=== PATIENT | female | born 1980 | race Caucasian/White ===

== ENCOUNTER 2024-03-18 08:07 | Emergency (ER) | payer SELFPAY ==
[2024-03-18 08:07] VITALS: BP 161/94
--- NOTE | 2024-03-18 08:34 | ED.GENMED ---
History of Present Illness
<TEJAL Green - Last Filed: 03/18/24 10:42>
General
Chief Complaint: Anal/Rectal Problem
Source: patient
Exam Limitations: none
Time Seen by Provider: 03/18/24 08:28
Nursing documentation reviewed up to this point in time: agreed with
History of Present Illness
History of Present Illness:
Patient is a 43-year-old female who presents to the ER complaining of rectal pain. She believes she has a hemorrhoid which started to swell several days ago. She realized yesterday that her groin lymph nodes were swollen bilaterally. She had has
not had any fevers but reports that she had a fever in triage of 100.1. She has been using Preparation H without relief. She denies any abdominal pain nausea vomiting.
Review of Systems
<TEJAL Green - Last Filed: 03/18/24 10:42>
Review of Systems
Allergies reviewed?: Yes
All Other Systems: ROS reviewed and negative except as documented in HPI and ROS
Constitutional: Reports fever and other (pt was unaware but presented with fever in ED )
Respiratory: Reports no symptoms
Cardiac: Reports no symptoms; Denies chest pain
ABD/GI: Reports other (rectal pain 'hemorrhoid' )
: Reports no symptoms
Musculoskeletal: Reports no symptoms
Skin: Reports no symptoms
Neurological: Reports no symptoms
Hematologic/Lymphatic: Reports no symptoms
Psychiatric: Reports no symptoms
Phy Exam
<TEJAL Green - Last Filed: 03/18/24 10:42>
General Physical Exam
General Presentation: no apparent distress
General age: appears stated age
General Skin: warm and dry
General Habitus: normal
General Mental: alert
General Hydration: appears well hydrated
Gastrointestinal Exam
Gastrointestinal Exam: non tender, soft and other (+ lesion in rectum hard , tender to palpated no fluctuance, small surrounding vesicles to perimeter of anus ; + enlarged mildly tender lymph nodes to b/l inguinal region )
Neurological Exam
Neurological Exam: alert and oriented x3
Musculoskeletal Exam
Musculoskeletal Exam: full ROM
Skin Exam
Skin Exam: normal color and warm/dry
Psychiatric Exam
Psychiatric Exam: normal mood/affect
Course
<TEJAL Green - Last Filed: 03/18/24 10:42>
Orders/Labs/Results
Orders:
Orders
03/18/24 08:52
Chlamydia/GC by PCR Urgent
[place] Source: Urine
Specimen Description:
Source:: URINE
Date Specimen was Collected: 03/18/24
Time Specimen was Collected: 09:26
03/18/24 08:53
Test Result ONCE
03/18/24 09:47
HCG, Urine Qualitative Screen Urgent
Date Specimen was Collected: 03/18/24
Time Specimen was Collected: 09:26
Herpes Culture Reflex - Typing Urgent
[place] Source: Rectal Swab
Specimen Description:
Source:: RECTAL SWAB
Date Specimen was Collected: 03/18/24
Time Specimen was Collected: 09:45
Vital Signs
Initial and Last Documented VS:
Initial Vital Signs
Temp Pulse Resp BP Pulse Ox
100.1 F 113 20 161/94 98
03/18/24 08:07 03/18/24 08:07 03/18/24 08:07 03/18/24 08:07 03/18/24 08:07
Last Documented Vital Signs
Temp Pulse Resp BP Pulse Ox
98.3 F 100 16 134/86 98
03/18/24 08:53 03/18/24 08:53 03/18/24 08:53 03/18/24 08:53 03/18/24 08:53
Websphere Message Broker Developer consulted with Physician
Websphere Message Broker Developer consulted with physician?: Yes
Name of Physician Consulted: Clark
<Jj Rodas, DO - Last Filed: 03/18/24 08:58>
Orders/Labs/Results
Orders:
Orders
03/18/24 08:52
Chlamydia/GC by PCR Urgent
[place] Source: Urine
Specimen Description:
Source:: URINE
Date Specimen was Collected: 03/18/24
Time Specimen was Collected: 09:26
03/18/24 08:53
Test Result ONCE
03/18/24 09:47
HCG, Urine Qualitative Screen Urgent
Date Specimen was Collected: 03/18/24
Time Specimen was Collected: 09:26
Herpes Culture Reflex - Typing Urgent
[place] Source: Rectal Swab
Specimen Description:
Source:: RECTAL SWAB
Date Specimen was Collected: 03/18/24
Time Specimen was Collected: 09:45
Vital Signs
Initial and Last Documented VS:
Initial Vital Signs
Temp Pulse Resp BP Pulse Ox
100.1 F 113 20 161/94 98
03/18/24 08:07 03/18/24 08:07 03/18/24 08:07 03/18/24 08:07 03/18/24 08:07
Last Documented Vital Signs
Temp Pulse Resp BP Pulse Ox
98.3 F 100 16 134/86 98
03/18/24 08:53 03/18/24 08:53 03/18/24 08:53 03/18/24 08:53 03/18/24 08:53
<TEJAL Green - Last Filed: 03/18/24 10:42>
MDM/Problems Addressed
MDM/Problems Addressed:
On exam patient has lesion from rectum that does not appear like a simple thrombosed hemorrhoid or hemorrhoid. There are some surrounding lesions/vesicles that are suspicious for possible herpes versus wart. Herpes culture was done. Patient
examined by ED physician. In addition patient presented with low-grade temp and bilateral inguinal lymph node swelling. Will DC with Valtrex and imiquimod cream for possible anal wart however will DC with close outpatient follow-up with colorectal
surgery.
I did tiger text DR Gardner he does recommend holding off on imiquimod cream. Culture sent for GC as well as herpes culture. Will DC with Valtrex with close outpatient follow-up with close outpatient follow-up with colorectal surgery. In addition
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 Will give TAPING SUPERVISOR info as well.
Pt nontoxic stable for discharge home
<TEJAL Green - Last Filed: 03/18/24 10:42>
*Pulse Oximetry
Patient hypoxic: no
*Critical Care Note
Total Time (30-74mins, 75-104mins- exclusive of procedures): Not Applicable
<TEJAL Green - Last Filed: 03/18/24 10:42>
Patient Management
Discussion with other providers: Under [facility] (Dr Robby Gardner)
ED Attending Note
<TEJAL Green - Last Filed: 03/18/24 10:42>
-
Portions of this chart may have been created with voice recognition software.� Occasional wrong word or��sound alike� substitutions may have occurred due to the inherent limitations of voice recognition software.
<Jj Rodas, - Last Filed: 03/18/24 08:58>
ED Attending Note
Patient seen and examined by attending physician: Yes
ED Attending Note:
I have reviewed and agree with his and treatment plan by Kely Vargas. My exam and accompaniment with Kely Vargas, revealed vesicular lesions, and possible anogenital wart. Will culture for herpes, check urine gonorrhea and chlamydia, treat
with Valtrex and imiquimod. Follow-up with colorectal surgery.
Discharge Plan
Departure
Patient Disposition: Home (Routine Discharge)
Date of Disposition: 03/18/24
Time of Disposition: 10:24
Patient with high blood pressure during this ER visit?: Yes
Condition: Fair
Covid-19: Not Applicable
Discharge Problem:
Pain, rectal
Instructions: BLOOD PRESSURE
Prescriptions:
New
valacyclovir 1 gram tablet
1,000 mg PO BID Qty: 20 0RF
lidocaine 5 % ointment
1 applic topical TID PRN (Reason: Pain) Qty: 30 0RF
Referrals:
[facility] [Provider Group]
[facility] [Outside]
Robby Gardner MD [Active] -
Ryder Roque DO [Family Provider] -
Activity Restrictions/Additional Instructions:
REctal pain:
As discussed you will be treated for possible herpes however a culture has been done and will not be resulted for the next several days. Please call colorectal surgery for outpatient follow-up as soon as possible. you were given a prescription
for Valtrex.
In addition you may follow up with [facility].
Return if any worsening of symptoms.
Interventions
Interventions:
*Risk Screen - Suicide Last Done: 03/18/24 08:07
*General Assessment Last Done: 03/18/24 08:07
*Neglect/Abuse Screening Last Done: 03/18/24 08:07
ED- Fall Risk Assessment Last Done: 03/18/24 08:53
*ED COVID-19 Vaccine History Last Done: 03/18/24 08:53
ED-Skin Assessment Last Done: 03/18/24 08:53
Discharge Date and Time
Print Language: ETHIOPIAN
[2024-03-18 08:53] VITALS: BP 134/86; BMI 25.4
[2024-03-18 10:04] LABS: HCG, Urine Qualitative Screen Negative
--- NOTE | 2024-03-18 10:59 | EDRN ---
Reviewed discharge instructions with patient. Verbalized understanding. Ambulated with steady gait to the lobby.
[2024-03-18 11:00] VITALS: BP 122/75
== END 2024-03-18 11:01 | disposition home or self-care (01) ==
LOC: EMR 08:07
PROVIDERS: Nurse Practitioner; EMERGENCY PHYSICIAN Emergency Medicine; FAMILY PHYSICIAN Family Medicine
DX: K62.89 Other specified diseases of anus and rectum (principal); R59.0 Localized enlarged lymph nodes
CPT/HCPCS: 99283; 81025; 87255; 87491; 87591

== ENCOUNTER → 2024-07-02 12:42 | Outpatient (REF) | payer OTHER, SELFPAY | LOC: WDC 12:42 | PROVIDERS: ATTENDING PHYSICIAN Physician Assistant | DX: Z12.31 Encounter for screening mammogram for malignant neoplasm of breast (principal) | CPT/HCPCS: 77063; 77067 ==

== ENCOUNTER → 2024-07-14 10:42 | Outpatient (REF) | payer OTHER, SELFPAY | LOC: WDC 10:42 | PROVIDERS: ATTENDING PHYSICIAN Physician Assistant | DX: R92.8 Other abnormal and inconclusive findings on diagnostic imaging of breast (principal) | CPT/HCPCS: 76642 ==

== ENCOUNTER 2024-08-20 18:03 | Emergency (ER) | payer OTHER, SELFPAY ==
[2024-08-20 18:06] VITALS: BP 145/96
[2024-08-20 18:32] LABS: % Basophils 0.6 % (0-2); % Immature Granulocytes 0.3 % (0-0.5); % Lymphocytes 27.7 % (20.5-51.1); % Monocytes 12.1 % (1.7-9.3); % Neutrophils 58.3 % (42.2-75.2); Absolute Eosinophils 0.1 10^3/uL (0-0.7); Absolute Monocytes 0.9 10^3/uL (0.1-0.6); Absolute Neutrophils 4.1 10^3/uL (1.4-6.5); Hematocrit 39.3 % (37.0-47.0); Hemoglobin 13.8 g/dL (12.0-16.0); Mean Corp Hgb Conc. 35.1 g/dL (33.0-37.0); Mean Corpuscular Volume 96.8 fL (81.0-99.0); Mean Platelet Volume 9.5 fL (7.4-10.4); Nucleated Red Blood Cells % 0 %; Platelet Count 190 10^3/uL (130-400); Red Blood Cell Count 4.06 10^6/uL (4.20-5.40); Red Cell Dist. Width 12.2 % (11.5-14.5); White Blood Cell Count 7.1 10^3/uL (4.8-10.8)
[2024-08-20 18:54] LABS: HCG, Serum Qualitative Screen Negative
[2024-08-20 18:56] LABS: Lactic Acid 1.5 mmol/L (0.7-2.0)
[2024-08-20 18:59] LABS: ALT (SGPT) 36 U/L (0-35); AST (SGOT) 28 U/L (14-36); Albumin 4.3 g/dl (3.5-5.0); Alkaline Phosphatase 61 U/L (38-126); Blood Urea Nitrogen 9 mg/dl (7-17); Calcium 9.7 mg/dl (8.4-10.2); Carbon Dioxide 27 mmol/L (22-30); Chloride 103 mmol/L (98-107); Glucose 115 mg/dl (70-99); Potassium 4.8 mmol/L (3.5-5.1); Sodium 139 mmol/L (135-145); Total Bilirubin 0.4 mg/dl (0.2-1.3); Total Protein 6.9 g/dl (6.3-8.2); eGFR > 60.00
[2024-08-20 22:37] VITALS: BP 120/94; BMI 27.9
--- NOTE | 2024-08-20 22:40 | ED.GENMED ---
History of Present Illness
<Jose Dave, DO - Last Filed: 08/20/24 22:41>
General
Chief Complaint: Dental Problem
Time Seen by Provider: 08/20/24 21:53
<Yumiko Rangel OPTOMETRIST OWNER - Last Filed: 08/22/24 18:44>
General
Source: patient
Exam Limitations: none
Nursing documentation reviewed up to this point in time: agreed with
History of Present Illness
History of Present Illness:
43-year-old female with no significant past medical history has had a right lower posterior most molar infection. Saw her dentist on 08/08 and told she needs a root canal. She states swelling and pain of the right jaw and right side of her neck
became worse 2 days ago. She has been taking ibuprofen and started on clindamycin and a Z-James yesterday. She has had 3 doses of the clindamycin total and 3 doses of the azithromycin. Her last ibuprofen was 9 PM tonight. She denies fever or
chills. Denies N/V. She denies difficulty swallowing.
Past History
<Yumiko Rangel OPTOMETRIST OWNER - Last Filed: 08/22/24 18:44>
Past History
ED Past Medical History: None
ED Past Surgical History: and Orthopedic
Review of Systems
<Yumiko Rangel OPTOMETRIST OWNER - Last Filed: 08/22/24 18:44>
Review of Systems
Allergies reviewed?: Yes
All Other Systems: ROS reviewed and negative except as documented in HPI and ROS
Constitutional: Denies fever or chills
EENT: Denies sore throat or mouth pain
Respiratory: Denies trouble breathing
ABD/GI: Denies nausea
Musculoskeletal: Reports neck pain (Right side with swollen lymph node)
Skin: Reports no symptoms
Neurological: Denies headache
Phy Exam
<Yumiko Rangel OPTOMETRIST OWNER - Last Filed: 08/22/24 18:44>
Physical Exam
Physical Exam:
GENERAL: No acute distress. A&Ox3.
CONSTITUTIONAL: Afebrile.
EYES: clear, conjunctivae normal
Neck: Supple. Moderate right submandibular lymph node which is firm and tender, mild swelling under the chin.
ENMT: moist mucus membranes, Pharynx nl, no trismus. No palpable abscess. Tongue is normal, subungual area is normal. Patient speaking well and swallowing well. TMs normal
RESPIRATORY: Regular respirations, nonlabored, lungs clear.
CARDIOVASCULAR: Regular rate and rhythm, no murmurs, no rubs.
GI: Soft, nontender
MUSCULOSKELETAL: Moves with ease. Well perfused.
SKIN: Warm, dry, pink
PSYCH: Normal mood and affect. Well kept, interactive and appropriate
NEUROLOGIC: Awake, alert and oriented. No focal neurological deficits
Course
<Jose Dave, DO - Last Filed: 08/20/24 22:41>
Orders/Labs/Results
Orders:
Orders
08/20/24 18:12
Test Result ONCE
08/20/24 18:23
Complete Blood Count/With Diff Urgent
Comprehensive Metabolic Panel Urgent
HCG, Serum Qualitative Screen Urgent
Comment: Notify provider if positive test present
Lactic Acid Q4H
Comment: ON ICE, CANCEL 2ND ORDER IF FIRST LACTIC ACID LEVEL <2
Blood Culture Q20M
[place] Source: Blood/Venous
Specimen Description:
Comment: Urgent from separate sites. If patient screens positive for possible sepsis
08/21/24
CT Neck With Iv Contrast Urgent
Reason For Exam: r lower dental infec with swelling neck
Abnormal Lab Results
08/20/24
18:23
RBC 4.06 L 10^6/uL
(4.20-5.40)
MCH 34.0 H pg
(27.0-31.0)
Absolute Monos (auto) 0.9 H 10^3/uL
(0.1-0.6)
Monocytes % 12.1 H %
(1.7-9.3)
Glucose 115 H mg/dl
(70-99)
ALT 36 H U/L
(0-35)
08/20/24 18:23
08/20/24 18:23
Vital Signs
Initial and Last Documented VS:
Initial Vital Signs
Temp Pulse Resp BP Pulse Ox
98.6 F 98 16 145/96 98
08/20/24 18:06 08/20/24 18:06 08/20/24 18:06 08/20/24 18:06 08/20/24 18:06
Last Documented Vital Signs
Temp Pulse Resp BP Pulse Ox
98.1 F 89 14 116/96 99
08/20/24 23:40 08/21/24 01:20 08/21/24 01:20 08/21/24 01:20 08/21/24 01:20
<Yumiko Rangel, OPTOMETRIST OWNER - Last Filed: 08/22/24 18:44>
Orders/Labs/Results
Orders:
Orders
08/20/24 18:12
Test Result ONCE
08/20/24 18:23
Complete Blood Count/With Diff Urgent
Comprehensive Metabolic Panel Urgent
HCG, Serum Qualitative Screen Urgent
Comment: Notify provider if positive test present
Lactic Acid Q4H
Comment: ON ICE, CANCEL 2ND ORDER IF FIRST LACTIC ACID LEVEL <2
Blood Culture Q20M
[place] Source: Blood/Venous
Specimen Description:
Comment: Urgent from separate sites. If patient screens positive for possible sepsis
08/21/24
CT Neck With Iv Contrast Urgent
Reason For Exam: r lower dental infec with swelling neck
Abnormal Lab Results
08/20/24
18:23
RBC 4.06 L 10^6/uL
(4.20-5.40)
MCH 34.0 H pg
(27.0-31.0)
Absolute Monos (auto) 0.9 H 10^3/uL
(0.1-0.6)
Monocytes % 12.1 H %
(1.7-9.3)
Glucose 115 H mg/dl
(70-99)
ALT 36 H U/L
(0-35)
08/20/24 18:23
08/20/24 18:23
Vital Signs
Initial and Last Documented VS:
Initial Vital Signs
Temp Pulse Resp BP Pulse Ox
98.6 F 98 16 145/96 98
08/20/24 18:06 08/20/24 18:06 08/20/24 18:06 08/20/24 18:06 08/20/24 18:06
Last Documented Vital Signs
Temp Pulse Resp BP Pulse Ox
98.1 F 89 14 116/96 99
08/20/24 23:40 08/21/24 01:20 08/21/24 01:20 08/21/24 01:20 08/21/24 01:20
Christian Science Reader consulted with Physician
Christian Science Reader consulted with physician?: Yes
Name of Physician Consulted: Tenzin
<Yumiko Rangel NP - Last Filed: 08/22/24 18:44>
MDM/Problems Addressed
Differential Diagnosis Includes:
Dental abscess, cellulitis, Alejandro's angina
MDM/Problems Addressed:
43-year-old female with no significant past medical history has had a right lower posterior most molar infection. Saw her dentist on 08/08 and told she needs a root canal. She states swelling and pain of the right jaw and right side of her neck
became worse 2 days ago. She has been taking ibuprofen and started on clindamycin and a Z-James yesterday. She has had 3 doses of the clindamycin total and 3 doses of the azithromycin. Her last ibuprofen was 9 PM tonight. She denies fever or
chills. Denies N/V. She denies difficulty swallowing.
Afebrile, NAD
Significant swelling of the right submandibular lymph node with swelling extending less prominently under the chin. Will obtain CAT scan to evaluate
Dr. Dave and to evaluate patient and agrees with plan.
08/17/24 1:[address] neck with IV contrast radiology report read: Mild right premaxillary soft tissue swelling without evidence of organized fluid collection, may represent developing soft tissue infection. Low-density collection along the lingual margin of the
right mandible, measuring approximately 5 x 8 mm, could represent phlegmon. No definite drainable component identified. Airway remains patent.
Prominent right greater than left enlarged lymph nodes may be reactive. Edematous appearance of right submandibular gland may represent element of reactive versus primary sialoadenitis. Cervical carotid and vertebral arteries are patent as both
internal jugular veins.
Patient is stable for discharge. She will continue her clindamycin and azithromycin. Ibuprofen for pain
Follow-up with dentist
Strict return instructions discussed. She is anxious to go home
Copy of CAT scan report given to patient
<Yumiko Rangel OPTOMETRIST OWNER - Last Filed: 08/22/24 18:44>
*Critical Care Note
Total Time (30-74mins, 75-104mins- exclusive of procedures): Not Applicable
ED Attending Note
<Jose Dave DO - Last Filed: 08/20/24 22:41>
ED Attending Note
Patient seen and examined by attending physician: Yes
I performed the substantive portion of visit, reviewed & personally made and approve the management plan that is documented in note by myself or VALENTINE.: Yes
ED Attending Note:
I have seen and evaluated the patient with a [id number] encounter. I have spoken to the advance practicer provider and involved in the medical history, the physical exam, medical decision making.
Evaluation and management service: agree unless noted differently below.
Results interpretation: agree unless noted differently below.
Focused HPI: 43-year-old female presenting for evaluation of right jaw swelling and pain. She has a toothache and is being set up for a root canal. She was placed on antibiotics. Due to the ongoing swelling, she was sent in for evaluation
Physical exam: Swelling and tenderness to right lower jaw. No tongue protrusion
Medical Decision Making: Will obtain CT to rule out deep space infection such as abscess versus early Ludewig's angina but suspect this is more reactive lymphadenopathy
-
Portions of this chart may have been created with voice recognition software.� Occasional wrong word or��sound alike� substitutions may have occurred due to the inherent limitations of voice recognition software.
Discharge Plan
Departure
Patient Disposition: Home (Routine Discharge)
Date of Disposition: 08/21/24
Time of Disposition: 01:16
Patient with high blood pressure during this ER visit?: No
Condition: Good
Discharge Problem:
Dental infection
Instructions: Dental pain - ED discharge instructions
Prescriptions:
No Action
Zithromax Z-James 250 mg Capsule
250 mg PO DAILY
clindamycin HCl 300 mg Capsule
300 mg PO Q6H
ibuprofen 600 mg Tablet
600 mg PO Q6H PRN (Reason: pain)
Referrals:
Your, dentist [Other] - Tomorrow
Oscar Mo MD [Family Provider] -
Activity Restrictions/Additional Instructions:
As we discussed, call your dentist tomorrow and inform of today's visit.
Ibuprofen as needed for pain
Continue your clindamycin and azithromycin.
Return here immediately for worsening swelling, difficulty speaking or swallowing, vomiting, swelling underneath your tongue, or seeming sicker in any way
Interventions
Interventions:
*Risk Screen - Suicide Last Done: 08/20/24 18:06
*General Assessment Last Done: 08/20/24 21:38
*Neglect/Abuse Screening Last Done: 08/20/24 18:06
*ED- Fall Risk Assessment Last Done: 08/20/24 21:38
*ED COVID-19 Vaccine History Last Done: 08/20/24 22:37
*Nursing Disposition Last Done: 08/21/24 01:20
Discharge Date and Time
Discharge Date/Time: 08/21/24 01:20
Print Language: [place]
[2024-08-20 23:40] VITALS: BP 120/73
[2024-08-21 01:20] VITALS: BP 116/96
== END 2024-08-21 01:20 | disposition home or self-care (01) ==
LOC: EMR 18:03
PROVIDERS: EMERGENCY PHYSICIAN Student in an Organized Health Care Education/Training Program; FAMILY PHYSICIAN Internal Medicine
DX: K04.7 Periapical abscess without sinus (principal); R22.1 Localized swelling, mass and lump, neck
CPT/HCPCS: 99284; 70491; 80053; 83605; 84703; 85025; 87040; Q9967

== ENCOUNTER → 2025-01-14 13:44 | Outpatient (REF) | payer OTHER, SELFPAY | LOC: WDC 13:44 | PROVIDERS: ATTENDING PHYSICIAN Physician Assistant | DX: R92.8 Other abnormal and inconclusive findings on diagnostic imaging of breast (principal) | CPT/HCPCS: 76642 ==